=== PATIENT | male | born 1970 | race Caucasian/White ===

== ENCOUNTER 2017-02-27 17:56 | Emergency (ER) | payer BC ==
--- NOTE | 2017-02-27 18:29 | UC ---
Lower Extremity/Ankle HPI - HPI Summary HPI Summary: 46 y/o male presents to the urgent care c/o RT ankle pain s/p falling from a ladder while cutting some trees yesterday. Pt reports the drop was about 15 ft. He landed on his back, but some he denies back pain. He has placed his foot with ice, pia wrap and taking Ibuprofen around the clock. Today, pain is 5/10 on both sides of ankle, with moderate swelling. He can walk and bear weight. Pt denies numbness and tingling over the toes or foot, SOB, chest pain, N/V/D, - History of Current Complaint Chief Complaint: UCLowerExtremity Stated Complaint: FALL Time Seen by Provider: 02/27/17 18:27 Hx Obtained From: Patient Onset/Duration: Sudden Onset, Lasting Days - 1 day, Still Present Severity Initially: Moderate Severity Currently: Moderate Pain Intensity: 5 Pain Scale Used: 0-10 Numeric Aggravating Factor(s): Ambulation Alleviating Factor(s): Rest, Elevation, Ice, OTC Meds Able to Bear Weight: Yes - Risk Factors Gout Risk Factors: Negative DVT Risk Factors: Negative Septic Arthritis Risk Factor: Negative - Allergies/Home Medications Allergies/Adverse Reactions: Allergies Allergy/AdvReac Type Severity Reaction Status Date / Time No Known Allergies Allergy Verified 02/27/17 18:19 PMH/Surg Hx/FS Hx/Imm Hx Previously Healthy: Yes Cardiovascular History: Hypertension - diet control - Surgical History Surgical History: Yes Surgery Procedure, Year, and Place: umbilical hernia repair 2007 - Family History Known Family History: Positive: Cardiac Disease - Social History Occupation: Employed Full-time Lives: With Family Alcohol Use: Occasionally Substance Use Type: None Smoking Status (MU): Never Smoked Tobacco Review of Systems Constitutional: Negative Skin: Negative Eyes: Negative ENT: Negative Respiratory: Negative Cardiovascular: Negative Gastrointestinal: Negative Genitourinary: Negative Motor: Negative Neurovascular: Negative Musculoskeletal: Other: - RT ankle pain s/p falling from a ladder Neurological: Negative Psychological: Negative Is Patient Immunocompromised?: No All Other Systems Reviewed And Are Negative: Yes Physical Exam Triage Information Reviewed: Yes Appearance: Well-Appearing, No Pain Distress, Well-Nourished Vital Signs: Initial Vital Signs Temp 99.2 F 02/27/17 18:13 Pulse 83 02/27/17 18:13 Resp 18 02/27/17 18:13 BP 139/94 02/27/17 18:13 Pulse Ox 98 02/27/17 18:13 Vital Signs Reviewed: Yes Eye Exam: Normal Eyes: Positive: Conjunctiva Clear - PERRLA, EOMI ENT Exam: Normal ENT: Positive: Normal ENT inspection, Hearing grossly normal, Pharynx normal, TMs normal Dental Exam: Normal Neck exam: Normal Neck: Positive: Supple, Nontender, No Lymphadenopathy Respiratory Exam: Normal Respiratory: Positive: Chest non-tender, Lungs clear, Normal breath sounds Cardiovascular Exam: Normal Cardiovascular: Positive: RRR, No Murmur, Pulses Normal Abdominal Exam: Normal Abdomen Description: Positive: Nontender, No Organomegaly, Soft. Negative: CVA Tenderness (R), CVA Tenderness (L) Bowel Sounds: Positive: Present Musculoskeletal: Positive: Other: - RT Ankle: Pt is able to bear weight and ambulate w/ moderate pain. The R ankle is moderate swelling on both malleollus when compare to the LF ankle. Decrease ROM due to pain. No obvious surface trauma, no ecchymosis or brusising. Tenderness over both malleolus. Point tenderness over the calcaneous on deep palapation. No tenderness or deformity of the midfoot or over the proximal fifth metatarsal; good dorsalis pedis and posterior tibial pulses and sensation to light touch normal. Talar tilt test is negative for ligament laxity to valgus or varus stress. Negative anterior drawer. Peroneal nerve is intact with strong eversion and plantar flexion. Lower Extremity Course/Dx - Course Course Of Treatment: 46 y/o male presents to the urgent care c/o RT ankle pain s /p falling from a ladder while cutting some trees yesterday. Pt reports the drop was about 15 ft. He landed on his back, but some he denies back pain. He has placed his foot with ice, pia wrap and taking Ibuprofen around the clock. Today, pain is 5/10 on both sides of ankle, with moderate swelling. He can walk and bear weight. Pt denies numbness and tingling over the toes or foot, SOB, chest pain, N/V/D. HX obtained. RT ankle X-ray ordered, Impression: Medial and lateral malleolus soft tissue swelling w/o evidence of fracture or malaligment. Pt Rx Ibuprofen Po for pain and swelling. Pt's ankle immobilized with Gel splint and pia bandage. Given crutches. Advised RICE, to f/u with Orthopedic or your PCP in 1 week for further images if not improvement of symptoms for further evaluation and treatment. Pt understood and agreed with plan of care. Pt left the clinic ambulating and A&OX3 with the help of crutches. - Differential Dx/Diagnosis Differential Diagnosis/HQI/PQRI: Contusion, Dislocation, Fracture (Closed), Sprain, Strain, Tendonitis Provider Diagnoses: 1- RT ankle pain s/p fall. 2- Uncontrolled HTN Discharge - Discharge Plan Condition: Stable Disposition: HOME Prescriptions: Ibuprofen TAB* [Motrin TAB* 800 MG] 800 mg PO Q6H #30 tab Patient Education Materials: Ankle Sprain (ED), Low Sodium Diet (ED) Forms: *Work Release Referrals: [facility] [Outside] - 1 Week Preet Landin MD [Medical Doctor] - 1 Week No Primary Care Phys,NOPCP [Primary Care Provider] - Additional Instructions: 1-Please take medications as directed to alleviate pain and swelling. 2-Please apply ice, keep your RT ankle immobilized with the splint. 3- Please f/u with Orthopedic or your PCP in 1 week is not improvement of symptoms for further evaluation and treatment. 4- Your BP today is elevated, please decrease salt in your diet, monitor your BP , if it continues to be elevated please f/y with your PCP for further management.
--- NOTE | 2017-02-27 19:37 | RAD ---
Indication: RIGHT ankle pain post fall from ladder. Swelling. Comparison: No relevant prior exams available on the [facility] PACS for comparison. Technique: AP, mortise, and lateral views RIGHT ankle. Report: Significant soft tissue swelling about the ankle without focality. Negative for fracture or malalignment. Small plantar fascia origin bone spur noted. IMPRESSION: Medial and lateral malleolus soft tissue tissue swelling without evidence for fracture or malalignment.
[2017-02-27 20:27] VITALS: BP 146/90
== END 2017-02-27 20:20 | disposition home or self-care (01) ==
LOC: UCEAST 17:56
DX: M25.571 Pain in right ankle and joints of right foot (principal); I10 Essential (primary) hypertension
CPT/HCPCS: 99203; G0463